=== PATIENT | male | born 1945 | race Caucasian/White ===

== ENCOUNTER → 2017-06-21 | Emergency (ER) | payer OTHER ==
[~2017-06-21] VITALS: Ht 177.8 cm; Wt 108.9 kg
[~2017-06-21] MED LIST: ASPIRIN LOW-STR81 M1 PO; ESCITALOPRAM OX10 MG PO; LOSARTAN-HCTZ1 EACH PO; MIRTAZAPINE45 M1 PO; PANTOPRAZOLE SO40 MG PO; PROSTEON TABLE1 EACH PO; RAYOS1 MG PO; SIMVASTATIN20 MG PO; ZYTIGA250 MG PO
== END | disposition left against medical advice (07) ==
LOC: ER 16:43
DX: Z53.20 Procedure and treatment not carried out because of patient's decision for unspecified reasons (principal)